=== PATIENT | female | born 1975 ===

== ENCOUNTER 2023-10-15 07:00 | Outpatient (NON) | payer MEDICARE, SELFPAY | END 2023-10-15 07:01 | disposition home or self-care (01) | LOC: ANHLAB 10-17 11:43 | PROVIDERS: Visit Provider Nurse Practitioner | DX: D17.21 Benign lipomatous neoplasm of skin and subcutaneous tissue of right arm (principal); R22.9 Localized swelling, mass and lump, unspecified | CPT/HCPCS: 88305 ==